=== PATIENT | female | born 1995 | race African-American/Black ===

== ENCOUNTER 2019-01-19 19:08 | Emergency (ER) | payer OTHER ==
[~2019-01-19] VITALS: Ht 157.5 cm; Wt 75.0 kg
[2019-01-19] MEDS ORDERED: KETOROLAC 30MG/ML VIAL IM ONE (21:15)
[2019-01-19 22:23] VITALS: BP 128/65
== END 2019-01-19 22:23 | disposition home or self-care (01) ==
LOC: ER 19:08
DX: R51 Headache (principal); M54.2 Cervicalgia; V40.6XXA Car passenger injured in collision with pedestrian or animal in traffic accident, initial encounter; Y93.89 Activity, other specified; Y92.89 Other specified places as the place of occurrence of the external cause; Y99.8 Other external cause status; J45.909 Unspecified asthma, uncomplicated
CPT/HCPCS: 81025; 96372; 99283; J1885